=== PATIENT | female | born 1990 | race Caucasian/White ===

== ENCOUNTER 2019-12-04 20:13 | Emergency (ER) | payer OTHER ==
[~2019-12-04] VITALS: Ht 157.5 cm; Wt 83.5 kg
[2019-12-04 20:50] VITALS: BP 129/89
--- NOTE | 2019-12-04 20:55 | NUR ---
PT TRIAGED AND WAITING IN LOBBY.
--- NOTE | 2019-12-04 21:00 | NUR ---
G3 T2 L2 - 5-6WEEKS . 29F PRESENTS TO ED WITH C/O SHARP LUQ,LLQ ABDOMINAL PAIN THAT IS RADIATING TO PELVIS X3 DAYS. +N/V. BOWEL SOUNDS NORMOACTIVE. ABDOMEN FIRM. PMHX: DENIES NKA NEGATIVE FOR COVID SCREEN. WEARING MASK.
[2019-12-04 21:52] LABS: BASOPHILS # (AUTO) 0.1 K/uL (0.00-0.22); BASOPHILS % (AUTO) 0.4 % (0.0-2.0); EOSINOPHILS # (AUTO) 0.2 K/uL (0-0.4); EOSINOPHILS % (AUTO) 1.5 % (0.0-4.0); HEMATOCRIT 39.9 % (36-48); LYMPHOCYTES # (AUTO) 3.3 K/uL (2.5-16.5); LYMPHOCYTES % (AUTO) 24.7 % (20.5-51.1); MEAN CORPUSCULAR HEMOGLOBIN 28 pg (27-31); MEAN CORPUSCULAR HGB CONC 33 g/dL (33-37); MEAN CORPUSCULAR VOLUME 87.3 fL (80-94); MONOCYTES # (AUTO) 0.9 K/uL (0.8-1.0); MONOCYTES % (AUTO) 6.9 % (1.7-9.3); NEUTROPHILS % (AUTO) 66.5 % (42.2-75.2); PLATELET COUNT (AUTO) 247 K/uL (140-450); RED BLOOD CELL COUNT(AUTO) 4.57 MIL/uL (4.20-5.40); RED CELL DISTRIBUTION WIDTH 12.7 % (11.6-13.7); WHITE BLOOD COUNT (AUTO) 13.6 K/uL (4.8-10.8)
--- NOTE | 2019-12-04 22:00 | NUR ---
PT AMBULATED TO BED 12 WITH STEADY GAIT.
[2019-12-04 22:06] LABS: APPEARANCE,URINE CLEAR (CLEAR); BILIRUBIN,URINE NEGATIVE (NEGATIVE); BLOOD, URINE NEGATIVE (NEGATIVE); COLOR,URINE YELLOW (YELLOW); LEUKOCYTE ESTERASE ,URINE NEGATIVE (NEGATIVE); NITRITE, URINE NEGATIVE (NEGATIVE); UGLUCOSE NEGATIVE (NEGATIVE)
--- NOTE | 2019-12-04 22:14 | NUR ---
US AT BEDSIDE.
--- NOTE | 2019-12-04 23:41 | NUR ---
Patient discharged with v/s stable. Written and verbal after care instructions given and explained. Patient verbalized understanding. Ambulatory with steady gait. All questions addressed prior to discharge. Advised to follow up with PMD.
== END 2019-12-04 23:41 | disposition home or self-care (01) ==
LOC: MED 20:13
DX: O26.891 Other specified pregnancy related conditions, first trimester (principal); O46.8X1 Other antepartum hemorrhage, first trimester; R10.9 Unspecified abdominal pain
CPT/HCPCS: 36415; 76817; 81003; 81025; 84702; 85025; 86900; 86901; 99284; Q0092

== ENCOUNTER 2020-07-15 22:10 | Inpatient (IN) | payer OTHER, SELFPAY ==
[~2020-07-15] VITALS: Ht 157.5 cm; Wt 85.7 kg
[2020-07-15] MEDS ORDERED: CARBOPROST 250 MCG/ML AMP IM PRN (23:10)
[2020-07-15] MEDS ORDERED: MISOPROSTOL 200 MCG TAB VG SCH (23:10)
[2020-07-15] MEDS ORDERED: MORPHINE SULFATE 5 MG/ML VIAL IVP PRN (23:10)
[2020-07-15] MEDS ORDERED: OXYTOCIN 20 UNITS in LACTATED RINGERS 1,000 ML IV SCH (23:10)
[2020-07-15] MEDS ORDERED: METHYLERGONOVINE 0.2 MG/ML AMP IM PRN (23:10)
[2020-07-15] MEDS ORDERED: LACTATED RINGERS 1,000 ML IV SCH (23:10)
[2020-07-15] MEDS ORDERED: ONDANSETRON 4 MG/2 ML VIAL IVP PRN (23:10)
[2020-07-15] MEDS ORDERED: MISOPROSTOL 25 MCG TAB VG PRN (23:50)
[2020-07-15 23:56] LABS: APPEARANCE,URINE SL CLOUDY (CLEAR); BILIRUBIN,URINE NEGATIVE (NEGATIVE); BLOOD, URINE NEGATIVE (NEGATIVE); COLOR,URINE YELLOW (YELLOW); LEUKOCYTE ESTERASE ,URINE NEGATIVE (NEGATIVE); NITRITE, URINE NEGATIVE (NEGATIVE); UGLUCOSE NEGATIVE (NEGATIVE)
[2020-07-16 00:03] LABS: BASOPHILS % (AUTO) 0.3 % (0.0-2.0); EOSINOPHILS # (AUTO) 0.1 K/uL (0-0.4); EOSINOPHILS % (AUTO) 0.8 % (0.0-4.0); HEMOGLOBIN 12.8 g/dL (12.0-16.0); LYMPHOCYTES # (AUTO) 2.4 K/uL (2.5-16.5); LYMPHOCYTES % (AUTO) 19.4 % (20.5-51.1); MEAN CORPUSCULAR HEMOGLOBIN 28 pg (27-31); MEAN CORPUSCULAR HGB CONC 34 g/dL (33-37); MEAN CORPUSCULAR VOLUME 82.2 fL (80-94); MONOCYTES % (AUTO) 7.9 % (1.7-9.3); NEUTROPHILS # (AUTO) 8.9 K/uL (1.8-7.7); NEUTROPHILS % (AUTO) 71.6 % (42.2-75.2); PLATELET COUNT (AUTO) 189 K/uL (140-450); RED BLOOD CELL COUNT(AUTO) 4.63 MIL/uL (4.20-5.40); WHITE BLOOD COUNT (AUTO) 12.5 K/uL (4.8-10.8)
[2020-07-16 00:22] LABS: CARBON DIOXIDE 22.9 mmol/L (21-32); CREATININE 0.6 mg/dL (0.6-1.3); POTASSIUM 3.9 mmol/L (3.5-5.1); TOTAL BILIRUBIN 0.3 mg/dL (0.0-1.0)
[2020-07-16 00:23] LABS: ALBUMIN 2.5 g/dL (3.4-5.0)
[2020-07-16] MEDS ORDERED: OXYTOCIN 20 UNITS/LR PREMIX 1,000 ML IV ONE (01:58)
[2020-07-16 02:29] VITALS: BP 130/78
[2020-07-16] MEDS ORDERED: ROPIVACAINE 0.2%/NS PREMIX 200 ML EPI ONE (03:55)
[2020-07-16] MEDS ORDERED: SIMETHICONE 80 MG TAB.CHEW PO PRN (07:15)
[2020-07-16] MEDS ORDERED: DOCUSATE SODIUM 100 MG GELCAP PO PRN (07:15)
[2020-07-16] MEDS ORDERED: OXYTOCIN 10 UNITS/ML VIAL IM PRN (07:15)
[2020-07-16] MEDS ORDERED: bisacodyL 5 MG TABEC PO PRN (07:15)
[2020-07-16] MEDS ORDERED: BENZOCAINE/MENTHOL 20%-0.5% 60 GM CAN TP PRN (07:15)
[2020-07-16] MEDS ORDERED: METHYLERGONOVINE 0.2 MG/ML AMP IM PRN (07:15)
[2020-07-16] MEDS ORDERED: IBUPROFEN 600 MG TAB PO PRN (07:15)
[2020-07-16] MEDS ORDERED: MEASLES, MUMPS, AND RUBELLA 1 VIAL SQVAC PRN (07:15)
[2020-07-16] MEDS ORDERED: IBUPROFEN 800 MG TAB PO PRN (07:15)
[2020-07-16] MEDS ORDERED: METHYLERGONOVINE 0.2 MG TAB PO PRN (07:15)
--- NOTE | 2020-07-16 08:23 | NUR ---
PATIENT HAS BEEN SCREENED AND CATEGORIZED LOW NUTRITION RISK. PATIENT WILL BE SEEN WITHIN 7 DAYS OF ADMISSION. 07/22/[address]
[2020-07-16] MEDS ORDERED: OXYTOCIN 20 UNITS in LACTATED RINGERS 1,000 ML IV SCH (23:10)
[2020-07-17 09:28] LABS: HEMATOCRIT 38.9 % (36-48); HEMOGLOBIN 12.8 g/dL (12.0-16.0)
== END 2020-07-17 15:30 | disposition home or self-care (01) | DRG 560 ==
LOC: MLD 22:10 → MFCC 07-16 10:10
PROVIDERS: ADMIT Obstetrics & Gynecology; ATTEND Obstetrics & Gynecology
PROC: 10E0XZZ Delivery of Products of Conception, External Approach (ICD-10-PCS; principal; 2020-07-16)
PROC: 00HU33Z Insertion of Infusion Device into Spinal Canal, Percutaneous Approach (ICD-10-PCS; 2020-07-16)
PROC: 3E0R3BZ Introduction of Anesthetic Agent into Spinal Canal, Percutaneous Approach (ICD-10-PCS; 2020-07-16)
PROC: 3E0234Z Introduction of Serum, Toxoid and Vaccine into Muscle, Percutaneous Approach (ICD-10-PCS; 2020-07-16)
PROC: 3E033VJ Introduction of Other Hormone into Peripheral Vein, Percutaneous Approach (ICD-10-PCS; 2020-07-16)
DX: O90.89 Other complications of the puerperium, not elsewhere classified (principal); Z20.822 Contact with and (suspected) exposure to COVID-19; Z23 Encounter for immunization; M54.9 Dorsalgia, unspecified; Z3A.39 39 weeks gestation of pregnancy; Z37.0 Single live birth
CPT/HCPCS: 36415; 51702; 59409; 76815; 80053; 81003; 85018; 85025; 86592; 86886; 86900; 86901; 90715; 96361; 96365; J2590; J2795; J7120

== ENCOUNTER 2020-11-19 10:06 | Emergency (ER) | payer OTHER, SELFPAY ==
[~2020-11-19] VITALS: Ht 157.5 cm; Wt 80.3 kg
[2020-11-19 10:22] VITALS: BP 120/84
--- NOTE | 2020-11-19 10:29 | NUR ---
PATIENT AMBULATED TO BED 7
--- NOTE | 2020-11-19 10:33 | NUR ---
30 Y/O FEMALE C/O LEFT BREAST PAIN 11/20 DESCRIBES ACHING NON-RADIATING X1DAY. PT STATES PAIN WORST AFTER . PT STATES REDNESS AND BUMP TO LEFT BREAST. DENIES RX PRIOR TO ARRIVAL. L3. LMP 10/23/20. PMH NKA
--- NOTE | 2020-11-19 10:36 | NUR ---
Dr. Goldsmith at pt bedside for further evaluation.
--- NOTE | 2020-11-19 10:36 | NUR ---
Female Medical Orderly accompanied female patient for BREAST Exam.
[2020-11-19] MEDS ORDERED: ACETAMINOPHEN 325 MG TAB PO ONE (10:45)
--- NOTE | 2020-11-19 10:48 | NUR ---
US tech at pt bedside.
[2020-11-19] MEDS ORDERED: CEPH-588 PO (11:21)
[2020-11-19] MEDS ORDERED: ACET-10509 PO (11:21)
[2020-11-19 11:28] VITALS: BP 120/84
--- NOTE | 2020-11-19 11:29 | NUR ---
Patient discharged with v/s stable. Written and verbal after care instructions given mastitis and explained. Patient alert, oriented and verbalized understanding of instructions. Ambulatory with steady gait. All questions addressed prior to discharge. ID band removed. Patient advised to follow up with PMD. Rx of keflex 500mg po qid, tynenol 500mg po qid prn pain given. Patient educated on indication of medication including possible reaction and side effects. Opportunity to ask questions provided and answered.
== END 2020-11-19 11:29 | disposition home or self-care (01) ==
LOC: MED 10:06
DX: N61.0 Mastitis without abscess (principal); Z79.899 Other long term (current) drug therapy; Z90.49 Acquired absence of other specified parts of digestive tract
CPT/HCPCS: 76641; 99284

== ENCOUNTER 2021-12-27 19:30 | Emergency (ER) | payer OTHER ==
[~2021-12-27] VITALS: Ht 157.5 cm; Wt 79.4 kg
[~2021-12-27 19:30] MED LIST: ACET-10509 PO; CEPH-588 PO
[2021-12-27 19:45] VITALS: BP 144/86
--- NOTE | 2021-12-27 19:48 | NUR ---
TO LOBBY A/W BED AMBULATORY
--- NOTE | 2021-12-27 20:33 | NUR ---
PT TAKEN TO BED 12
--- NOTE | 2021-12-27 20:40 | NUR ---
RECEIVED IN BED 12 WITH C/O VAG BLEEDING WHICH STARTED TODAY STARTED TODAY, MODERATE IN AMOUNT . LMP NOVEMBER 20. PT IS (+) FOR
[2021-12-27 21:02] LABS: BASOPHILS # (AUTO) 0.1 K/uL (0.00-0.22); BASOPHILS % (AUTO) 0.4 % (0.0-2.0); EOSINOPHILS # (AUTO) 0.2 K/uL (0-0.4); EOSINOPHILS % (AUTO) 1.5 % (0.0-4.0); HEMATOCRIT 41.4 % (36-48); HEMOGLOBIN 13.8 g/dL (12.0-16.0); LYMPHOCYTES # (AUTO) 3.3 K/uL (2.5-16.5); LYMPHOCYTES % (AUTO) 27.6 % (20.5-51.1); MEAN CORPUSCULAR HEMOGLOBIN 28 pg (27-31); MEAN CORPUSCULAR HGB CONC 33 g/dL (33-37); MEAN CORPUSCULAR VOLUME 84.9 fL (80-94); MONOCYTES # (AUTO) 0.9 K/uL (0.8-1.0); MONOCYTES % (AUTO) 7.1 % (1.7-9.3); NEUTROPHILS # (AUTO) 7.7 K/uL (1.8-7.7); NEUTROPHILS % (AUTO) 63.4 % (42.2-75.2); PLATELET COUNT (AUTO) 258 K/uL (140-450); RED BLOOD CELL COUNT(AUTO) 4.88 MIL/uL (4.20-5.40); RED CELL DISTRIBUTION WIDTH 13.3 % (11.6-13.7); WHITE BLOOD COUNT (AUTO) 12.1 K/uL (4.8-10.8)
[2021-12-27 21:03] LABS: APPEARANCE,URINE CLEAR (CLEAR); BILIRUBIN,URINE NEGATIVE (NEGATIVE); BLOOD, URINE 3+ (NEGATIVE); COLOR,URINE YELLOW (YELLOW); LEUKOCYTE ESTERASE ,URINE 1+ (NEGATIVE); NITRITE, URINE NEGATIVE (NEGATIVE); UGLUCOSE NEGATIVE (NEGATIVE)
--- NOTE | 2021-12-27 21:03 | NUR ---
Ultrasound at bedside.
[2021-12-27 21:15] LABS: OTHER CASTS, URINE None Seen /LPF (None Seen)
[2021-12-27 23:55] VITALS: BP 144/86
--- NOTE | 2021-12-27 23:55 | NUR ---
DR VICK AT BEDSIDE FOR RE-EXAM AND DISPOSITION.Patient discharged with v/s stable. Written and verbal after care instructions given and explained. Patient verbalized understanding. Ambulatory with steady gait. All questions addressed prior to discharge. Advised to follow up with PMD.
== END 2021-12-27 23:55 | disposition home or self-care (01) ==
LOC: MED 19:30
DX: O20.0 Threatened abortion (principal); Z3A.01 Less than 8 weeks gestation of pregnancy
CPT/HCPCS: 36415; 76817; 81001; 81025; 84702; 85025; 86900; 86901; 87086; 99284; Q0092